=== PATIENT | female | born 1980 | race Caucasian/White ===

== ENCOUNTER → 2017-09-02 09:53 | Outpatient (CLI) | payer OTHER, SELFPAY ==
--- NOTE | 2017-09-02 09:56 | HPBI_ITS ---
MAMMOGRAPHY - BILATERAL SCREENING REASON FOR EXAM: Female, 36 years old. Routine annual screening examination. PERTINENT HISTORY: Mother with breast cancer. Aunt with breast cancer. TECHNIQUE: Digital bilateral breast earnestine (3D mammographic acquisition) in the CC and MLO projections. 2-D mediolateral oblique (MLO) and craniocaudad (CC) views of both breasts were obtained. CAD: Full Field Digital Mammography with Computer Added Detection was performed. COMPARISON: Comparison is made with prior examination dated September 01, 2016 and August 31, 2015. FINDINGS: Breast Composition: The breasts are heterogeneously dense, which may obscure small masses. There is a 1.2 cm x 2.3 cm well-defined nodular density in the upper lateral portion of the right breast. Correlation with ultrasound is recommended. No other significant abnormalities are identified. HPBI/SCREENING MAMM (CAD), BILAT IMPRESSION: Findings suggest a more well-defined nodular density in the upper outer portion of the right breast as described. Correlation with ultrasound is recommended. ASSESSMENT CATEGORY: BIRADS Category 0: Incomplete. Need additional imaging evaluation. A letter regarding these results will be sent to the patient by the facility within 30 days. Approximately 10% of breast cancers are not detected by mammography. A normal mammogram should not delay biopsy of a clinically suspicious abnormality. [id number] Electronically Signed: Richard Clayton MD at 12:50 EST Tel [phone], Service support ,
== END | disposition home or self-care (01) ==
PROVIDERS: Family Provider Internal Medicine; PCP Internal Medicine; Visit Provider Obstetrics & Gynecology
DX: Z80.3 Family history of malignant neoplasm of breast (principal)
CPT/HCPCS: 77063; 77067; G0202

== ENCOUNTER → 2018-07-19 14:39 | Outpatient (CLI) | payer OTHER, SELFPAY ==
[2018-07-30 10:15] LABS: HPV Reflexed? NOT INDICATED
== END ==
PROVIDERS: Visit Provider Obstetrics & Gynecology
DX: Z12.4 Encounter for screening for malignant neoplasm of cervix (principal)
CPT/HCPCS: 88175; G0145

== ENCOUNTER → 2018-09-16 10:09 | Outpatient (CLI) | payer OTHER, SELFPAY ==
--- NOTE | 2018-09-16 10:12 | BI_ITS ---
MAMMOGRAPHY - BILATERAL SCREENING REASON FOR EXAM: Female, 37 years old. Routine annual screening examination. PERTINENT HISTORY: Mother with breast cancer. TECHNIQUE: Digital bilateral breast earnestine (3D mammographic acquisition) in the CC and MLO projections. 2-D mediolateral oblique (MLO) and craniocaudad (CC) views of both breasts were obtained. CAD: Full Field Digital Mammography with Computer Added Detection was performed. COMPARISON: Comparison is made with prior study dated September 02, 2017 and September 01, 2016. FINDINGS: Breast Composition: The breasts are heterogeneously dense, which may obscure small masses. There are no dominant masses or suspicious calcifications. Once again, I suspect a 2.4 cm x 1.3 cm nodular density in the upper lateral portion of the right breast. Prior ultrasound did not show any abnormality. A repeat ultrasound is recommended. If no abnormality seen on the ultrasound, compression spot views is recommended. No other significant abnormalities are identified. BI/SCREENING MAMM (CAD), BILAT IMPRESSION: Persistent well-defined nodular density in the right breast as described. A repeat sonogram is recommended. If the sonogram does not show any abnormality, compression spot views should be obtained. ASSESSMENT CATEGORY: BIRADS Category 0: Incomplete. Need additional imaging evaluation. A letter regarding these results will be sent to the patient by the facility within 30 days. Approximately 10% of breast cancers are not detected by mammography. A normal mammogram should not delay biopsy of a clinically suspicious abnormality. [id number] Electronically Signed: Richard Clayton MD at 11:57 EST Tel [phone], Service support ,
== END ==
PROVIDERS: Family Provider Internal Medicine; PCP Internal Medicine; Referring Provider Obstetrics & Gynecology; Visit Provider Obstetrics & Gynecology
DX: Z12.31 Encounter for screening mammogram for malignant neoplasm of breast (principal)
CPT/HCPCS: 77063; 77067

== ENCOUNTER → 2018-09-20 10:56 | Outpatient (CLI) | payer OTHER, SELFPAY ==
--- NOTE | 2018-09-20 10:58 | US_ITS ---
STUDY: ULTRASOUND BREAST - RIGHT REASON FOR EXAM: Female, 37 years old. Abnormal screening mammogram. TECHNIQUE: Axial and longitudinal images of the RIGHT breast were performed with a high resolution ultrasound transducer. COMPARISON: Comparison is made with prior mammogram dated September 16, 2018. Comparison is also made of a prior sonogram of the right breast dated September 07, 2017. FINDINGS: RIGHT Breast: There is a 1.7 cm x 2 cm x 0.6 cm solid nodule at the 10:00 position of the breast at 8 cm from the nipple. A biopsy is recommended for further evaluation. At the 8:00 position in the breast at 8 summary some nipple, there is a 0.9 cm x 0.9 cm x 0.4 cm well-defined hypoechoic nodule suggestive of a small fibroadenoma. US/Breast Limited Unilateral IMPRESSION: The mammographic abnormality corresponds a 1.7 cm x 2 cm x 0.6 cm mixed echogenic solid nodule at the 10:00 position breast at 8 cm from nipple. A biopsy is recommended for further evaluation. ASSESSMENT CATEGORY: BIRADS Category 4: Suspicious - Biopsy Should Be Considered. A letter regarding these results will be sent to the patient by the facility within 30 days. Electronically Signed: Richard Clayton MD at 13:07 EST Tel [phone], Service support ,
== END ==
PROVIDERS: Family Provider Internal Medicine; PCP Internal Medicine; Referring Provider Obstetrics & Gynecology; Visit Provider Obstetrics & Gynecology
DX: R92.8 Other abnormal and inconclusive findings on diagnostic imaging of breast (principal)
CPT/HCPCS: 76642

== ENCOUNTER → 2018-09-24 12:49 | Outpatient (CLI) | payer OTHER, SELFPAY ==
[2018-09-23 14:11] VITALS: BMI 35.2
--- NOTE | 2018-09-24 12:59 | US_ITS ---
STUDY: ULTRASOUND BREAST - RIGHT REASON FOR EXAM: Female, 37 years old. Ultrasound guided biopsy of the 2 solid nodules in the right breast. TECHNIQUE: Axial and longitudinal images of the RIGHT breast were performed with a high resolution ultrasound transducer. COMPARISON: None. FINDINGS: RIGHT Breast: Under direct sonographic guidance, the surgeon performed core biopsies of the nodules at the 10:00 and 8:00 position the breasts. US/US Breast Biopsy 1st Lesion IMPRESSION: Successful ultrasound-guided breast biopsies. ASSESSMENT CATEGORY: BIRADS Category 4: Suspicious - Biopsy Should Be Considered. A letter regarding these results will be sent to the patient by the facility within 30 days. Electronically Signed: Richard Clayton MD at 14:59 EST Tel [phone], Service support ,
--- NOTE | 2018-09-24 13:30 | LES_PTH ---
PATIENT: ÁLVARO MAST LOC: [facility] U#:[id number] AGE/SX: 44/F ROOM: RE09/24/[address]: Dr. Avila Julien MD : 1980 BED: DIS: SPEC #: [id number] RECD: 09/24/18 15:20 STATUS: KELSI REUlisses #: [id number] YUMIKO: 09/24/18 13:[address]: Avila Julien DEPT: SURGICAL PATHOLOGY RECD BY: Michael Lorenzana ENTERED: 09/27/18 09:26 SP TYPE: Lesion OTHR DR: Dr. Meena Orellana, DO Tissues: A - Skin of nipple B - Skin of nipple Procedures: Surgery Specimen Level IV HEADER OPERATION: Ultrasound-guided right breast biopsy x2 PRE-OP DIAGNOSIS: Right breast lesion on mammogram/ultrasound TISSUE SUBMITTED: A. 10 o'clock lesion 8 cm from nipple, B. 8 o'clock lesion 8 cm from nipple ISCHEMIC TIME: 1 minute FIXATION TIME: 78 hours MICROSCOPIC DIAGNOSIS A. Right breast lesion at 10 o'clock, core biopsy: Consistent with fibroadenoma. B. Right breast lesion at 8 o'clock, core biopsy: Benign breast parenchyma. AM:trace 09/28/18 MICROSCOPIC DESCRIPTION Slides are reviewed. GROSS DESCRIPTION A - Received in fixative is one container labeled with the patient's name and designated right #1. The specimen consists of multiple elongated fragments of bill-yellow fibroadipose tissue that in aggregate measure 1.5 x 0.2 x 0.1 cm. The entire specimen is submitted in one cassette. B - Received in fixative is one container labeled with the patient's name and designated right #2. The specimen consists of multiple elongated fragments of bill-yellow fibroadipose tissue that in aggregate measure 1 x 1 x 0.1 cm. The entire specimen is submitted in one cassette. / SJ:trace 09/27/18 TC:5 CPT: 52148 x2
--- NOTE | 2018-10-04 14:29 | PCM.OPRPT ---
Problem List (1) Abnormal mammogram of right breast Status: Acute Report of Operation Date of Procedure: 09/24/18 Pre-Operative Diagnosis: Abnormal mammogram to right breast x2 Post-Operative Diagnosis: Same Surgery/Procedure Performed:: Ultrasound-guided needle core biopsy of right breast x2 Type of Anesthesia:: Local Description of Procedure: Some of the right breast at 10 o'clock position revealed the lesion in question. I prepped the breast with Betadine. I injected 1% lidocaine plain. I injected local down to the lesion using ultrasound guidance. A skin pete was made. Under ultrasound guidance to needle core biopsies were obtained of this lesion. Under ultrasound guidance a titanium clip was placed in the biopsy cavity. At the 8 o'clock position another lesion was identified. The skin was prepped with Betadine. 1% lidocaine plain was injected. Local was injected down to the lesion under ultrasound guidance. A skin pete was made. Under ultrasound guidance to needle core biopsies were obtained of this lesion. Under ultrasound guidance a small titanium clip was placed. Sterile dressings were applied. The patient tolerated the procedure well. - Admit VTE Documentation VTE Present on Admission: No VTE Mechan Device Prophylaxis: None VTE Pharm Prophylaxis ordered?: No Reason prophylaxis not ordered:: Treatment Not Indicated
--- OUTSIDE RECORDS SUMMARY | 2018-11-10 08:09 | XMS RPT_ITS ---
:1980 External Reference #:[id number] Author Organization OHIP Care Team Providers Name Role Phone JOSE A LAWLER Attending Unavailable JOSE A LAWLER Referring Unavailable Esteban DO, Meena Attending Unavailable Esteban DO, Meena Referring Unavailable Esteban DO, Meena Consulting Unavailable [facility], Avila Attending Unavailable Benekos, Leidy Referring Unavailable Anaya, Avila Attending Unavailable [facility], Avila Referring Unavailable Esteban, Meena Primary Care Unavailable Benekos, Leidy Attending Unavailable Benekos, Leidy Attending Unavailable Benekos, Leidy Referring Unavailable Esteban, Meena Primary Care Unavailable Anaya, Avila Attending Unavailable Esteban, Meena Referring Unavailable Anaya, Avila Attending Unavailable Benekos, Leidy Attending Unavailable Benekos, Leidy Referring Unavailable Esteban, Meena Primary Care Unavailable Purpose Purpose PROBLEMS PROBLEMS DATE TYPE CONDITION / CODE ATTENDING STATUS SOURCE 09/29/2018 Unknown D24.1 - Benign Avila Julien Active [place] neoplasm of right [facility] breast / Hospital D24.1(ICD-10) Repository 10/25/2018 Unknown R92.8 - Other Avila Julien Active [place] abnormal and Community inconclusive Hospital findings on Repository diagnostic imaging of breast / R92.8(ICD-10) 07/19/2018 Unknown Z12.4 - Encounter Leidy Piper Active [place] for screening for Community malignant neoplasm Hospital cervix / Repository Z12.4(ICD-10) 01/05/2018 Active Unknown / JOSE A LAWLER Active [facility] UNK(Unknown) Main [place] Repository PROCEDURES PROCEDURES No Procedure Records FoundVITAL SIGNS VITAL SIGNS No Vital Signs Records FoundRESULTS RESULTS OPERATIVE REPORT Observed: 10/04/2018 Status: F Source: [place] 4:07 PM [facility] REPOSITORY [facility] Medical Records Department [address] [place] [address] Operative Report 10/04/18 1429 MR#: [id number] Acct: [id number] Name: REA CHEN Rep #: [id number] : 1980 37 From: Avila Julien MD PCP: Meena Orellana DO Status: REG CLI Y Location: OPUS Problem List (1) Abnormal mammogram of right breast Status: Acute Report of Operation Date of Procedure: 09/24/18 Pre-Operative Diagnosis: Abnormal mammogram to right breast x2 Post-Operative Diagnosis: Same Surgery/Procedure Performed:: Ultrasound-guided needle core biopsy of right breast x2 Type of Anesthesia:: Local Description of Procedure: Some of the right breast at 10 o'clock position revealed the lesion in question. I prepped the breast with Betadine. I injected 1% lidocaine plain. I injected local down to the lesion using ultrasound guidance. A skin pete was made. Under ultrasound guidance to needle core biopsies were obtained of this lesion. Under ultrasound guidance a titanium clip was placed in the biopsy cavity. At the 8 o'clock position another lesion was identified. The skin was prepped with Betadine. 1% lidocaine plain was injected. Local was injected down to the lesion under ultrasound guidance. A skin pete was made. Under ultrasound guidance to needle core biopsies were obtained of this lesion. Under ultrasound guidance a small titanium clip was placed. Sterile dressings were applied. The patient tolerated the procedure well. - Admit VTE Documentation VTE Present on Admission: No VTE Mechan Device Prophylaxis: None VTE Pharm Prophylaxis ordered?: No Reason prophylaxis not ordered:: Treatment Not Indicated 10/04/18 1607 <Electronically signed by Avila Julien MD> Date Avila Julien MD CC: Avila Julien MD; Meena Orellana DO Signed SURGERY VISIT REPORT Observed: 09/29/2018 Status: F Source: [place] 1:59 PM [facility] REPOSITORY [facility] [address] [place] [address] [address] [place] [address] OFFICE VISIT Date of Service: 09/29/18 MR#: [id number] Acct: [id number] Name: REA CHEN Rep #: [id number] : 1980 Provider: Avila Julien MD Age/Sex: 37/F Location: [facility] Status: Signed Intake Vital Signs09/29/18 Body Mass Index (BMI) 35.2 Intake Visit Reasons: F/U BREAST BX 09/24/2018 [place] Induction Required: No Is patient in pain?: No Allergies erythromycin base Adverse Reaction (Verified 09/29/18 13:24) Vomiting Medications cholecalciferol (vitamin D3) 2,000 unit capsule 2,000 unit PO DAILY 12/13/18 [History Confirmed 09/29/18] ferrous sulfate ER 142 mg (45 mg iron) tablet,extended release 142 mg PO DAILY tab 09/23/18 [History Confirmed 09/29/18] fexofenadine 180 mg tablet 180 mg PO DAILY 09/23/18 [History Confirmed 09/29/18] lactobacillus combination no.9 4 billion cell capsule PO DAILY cap 09/23/18 [History Confirmed 09/29/18] metoprolol succinate ER 25 mg tablet,extended release 24 hr 25 mg PO DAILY 09/23/18 [History Confirmed 09/29/18] multivitamin capsule 1 cap PO DAILY 09/23/18 [History Confirmed 09/29/18] norethindrone acetate-ethinyl estradiol 0.5 mg-2.5 mcg tablet 1 tab PO DAILY 09/23/18 [History Confirmed 09/29/18] vitamin B complex tablet 1 tab PO DAILY 09/23/18 [History Confirmed 09/29/18] PFSH Medical History Fibroadenoma of right breast (Acute) right breast parenchyma (Acute) Abnormal mammogram of right breast (Acute) History of wisdom tooth extraction (Acute) Hypertension (Chronic) Surgical History History of (Acute) History of tonsillectomy (Acute) Family History Mother Breast cancer Colon cancer 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 Social History Smoking Status: Former smoker alcohol intake: never substance use type: does not use HPI HPI HPI: REA CHEN, is a 37 F who presents to the office today for follow-up from a ultrasound-guided right breast biopsy x2. Her biopsy date was 09/24/2018 she underwent an ultrasound-guided right needle core biopsy of the 10:00 lesion in the 8:00 lesion. The 10:00 lesion came back as a fibroadenoma. The 8:00 lesion came back as benign breast parenchyma. She has noted moderate amount of bruising. She has had no nipple discharge and no expanding hematomas. Exam Chest Other: 2 biopsy incisions look clean minimal bruising is identified. There is no cellulitis identified. Steri-Strips are off Assessment AND Plan Problems 1. 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 As long as this is stable and I do not need to see her back. We did discuss the need for her to go down to the [facility] secondary to having such a strong family history of breast cancer. She is going to discuss this with her mom and make a decision later. 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 [address] [place] [address] [address] [place] [address] OFFICE VISIT Date of Service: 09/23/18 MR#: [id number] Acct: [id number] Name: REA CHEN Marly Rep #: [id number] : 1980 Provider: Avila Julien MD Age/Sex: 37/F Location: [facility] Status: Signed Intake Vital Signs09/23/18 Height 5 ft 8 in 09/23/18 Weight: 232 lb Intake Visit Reasons: NODULE R BREAST, U/S AND MAMMO @ [facility] [place] Induction Required: No Is patient in pain?: No Allergies erythromycin base Adverse Reaction (Verified 09/29/18 13:24) Vomiting Medications cholecalciferol (vitamin D3) 2,000 unit capsule 2,000 unit PO DAILY 09/23/18 [History Confirmed 09/29/18] ferrous sulfate ER 142 mg (45 mg iron) tablet,extended release 142 mg PO DAILY tab 09/23/18 [History Confirmed 09/29/18] fexofenadine 180 mg tablet 180 mg PO DAILY 09/23/18 [History Confirmed 09/29/18] lactobacillus combination no.9 4 billion cell capsule PO DAILY cap 09/23/18 [History Confirmed 09/29/18] metoprolol succinate ER 25 mg tablet,extended release 24 hr 25 mg PO DAILY 09/23/18 [History Confirmed 09/29/18] multivitamin capsule 1 cap PO DAILY 09/23/18 [History Confirmed 09/29/18] norethindrone acetate-ethinyl estradiol 0.5 mg-2.5 mcg tablet 1 tab PO DAILY 09/23/18 [History Confirmed 09/29/18] vitamin B complex tablet 1 tab PO DAILY 09/23/18 [History Confirmed 09/29/18] [facility] Medical History 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 Patient underwent a mammogram and ultrasound completed [facility] on 09/20/2018. This showed a one-point centimeter by 2 cm x 0.6 cm nodule at the 10 o'clock position 8 cm from the nipple as well as a 0.9 x 0.9 x 0.4 cm nodule in the 8 o'clock position approximately 8 cm from the nipple. I initially took a look at these with my ultrasound to see if I could do a biopsy however they were so small there was nothing that I was going to be able to do in the office and was clear that I was going to need to do an ultrasound-guided needle biopsy in radiology. The patient does have a fairly strong family history of breast cancer. ROS General General: No weight change, appetite, fatigue, colon cancer, breast cancer or weakness HEENT HEENT: No difficulty swallowing, eye injury, eye surgery, swollen glands or hoarseness Endo Endocrine: No thyroid disease, diabetes mellitus, thyroid cancer, Hair loss, heat intolerance or cold intolerance Skin Skin: No rash or changing moles Breast Breast: No left breast lump, right breast lump, nipple discharge, breast pain, abnormal mammogram, abnormal US or breast enlargement Musc Musculoskeletal: No back problems, arthritis, rheumatoid arthritis, gout or joint pain Cardio Cardiovascular: Yes high blood pressure; no murmur, pacemaker, heart disease, atrial fibrillation, heart attack, heart stent, palpitations, shortness of breat with exertion or chest pain Psych Psychiatric: No depression, anxiety or hearing voices Resp Respiratory: No shortness of breath, No sleep apnea, No cough, No COPD, No asthma, No emphysema, No wheezing Gastro Gastrointestinal: No abdominal pain, No nausea or vomiting, No diarrhea, No constipation, No blood in stool, No acid reflux, No hemorrhoids, No ulcers, No gallbladder problem, No black,tarry stools Yoel Hematologic: No blood thinners, No blood disorders, No bleeding, No anemia, No blood clots Neuro Neurologic: No system reviewed and no additional complaints, except as docu, No as per HPI, No abnormal walking, No abnormal hearing, No abnormal movements, No abnormal speech, No behavioral changes, No burning sensations, No confusion, No seizure-like activity, No unsteadiness, No dizziness, No localized weakness, No frequent falls, No headache(s), No lack of coordination, No loss of vision, No memory loss, No numbness, No other visual disturbances, No radiating pain, No restless legs, No sensory deficit, No fainting, No tingling, No tremor(s), No weakness, No other Exam HENMT Head: normal to inspection, normocephalic, atraumatic Mouth: moist mucous membranes, oropharynx normal Eyes General: appearance normal, both eyes and all related structures Sclera: sclerae normal Neck Neck: no lymphadenopathy noted, trachea midline Neck mass: No Thyroid: thyroid normal Lymphatic: no lymphadenopathy noted Chest Breast inspection: normal inspection of the breasts Breast Palpation: No nipple discharge Resp Other: Respiratory Exam: Deferred Cardio Heart Sounds: no murmurs Other: Cardiac Exam: Deferred GI Other: GI Exam: Deferred Other: Rectal Exam: Deferred Extrem Other: Extremity Exam: Deferred Assessment AND Plan Problems 1. Abnormal mammogram of right breast R92.8 Plan I have discussed above with the patient. I have recommended ultrasound guided needle core breast biopsy x 2. I have described the procedure to the patient. I have discussed with the patient that sometimes the ultrasound lesion may be artifact and is user dependent and therefore prior to undergoing the procedure, the patient will have a definitive US to ensure that the lesion is truly present and is not artifact. A marker clip will be placed to identify the location. Patient has been counseled to the risks/benefits of the procedure. I have explained the risks of the surgery, including but not limited to: infection, bleeding, injury to any blood vessels/nerves, scar tissue, missing the lesion, further surgery, etc. - the patient understands and agrees to proceed. I have answered all of the patient's questions to her satisfaction and she has no further questions. Medications New: Coding Level of Care Code Off vis,new,level 3 Diagnoses Abnormal mammogram of right breast R92.8 09/29/18 1346 <Electronically signed by Avila Julien MD> Date Avila Julien MD Cosigner Signature: Date (if applicable) CC: Leidy Piper MD; Meena Orellana DO LESION (CHOOSE SITE) Observed: 09/24/2018 Status: F Source: [place] 1:30 PM [facility] REPOSITORY Patient: REA CHEN : 1980 (37/F) Acct Num: [id number] Phys: Anaya TAN,Avila Unit Num: [id number] Loc: OPUS Specimen: [id number] Received: 09/24/181519 Spec Type: Lesion TISSUES 1 TISSUES: A. Skin of nipple B. Skin of nipple GROSS DESCRIPTION A - Received in fixative is one container labeled with the patient's name and designated right #1. The specimen consists of multiple elongated fragments of bill-yellow fibroadipose tissue that in aggregate measure 1.5 x 0.2 x 0.1 cm. The entire specimen is submitted in one cassette. B - Received in fixative is one container labeled with the patient's name and designated right #2. The specimen consists of multiple elongated fragments of bill-yellow fibroadipose tissue that in aggregate measure 1 x 1 x 0.1 cm. The entire specimen is submitted in one cassette. / SJ:trace 09/27/18 TC:5 CPT: 26533 x2 HEADER OPERATION: Ultrasound-guided right breast biopsy x2 PRE-OP DIAGNOSIS: Right breast lesion on mammogram/ultrasound TISSUE SUBMITTED: A. 10 o'clock lesion 8 cm from nipple, B. 8 o'clock lesion 8 cm from nipple ISCHEMIC TIME: 1 minute FIXATION TIME: 78 hours MICROSCOPIC DESCRIPTION Slides are reviewed. MICROSCOPIC DIAGNOSIS A. Right breast lesion at 10 o'clock, core biopsy: Consistent with fibroadenoma. B. Right breast lesion at 8 o'clock, core biopsy: Benign breast parenchyma. AM:trace 09/28/18 Signed Jose A Michele DO 09/28/18 <signature on file> Performed By: #### PLES #### [facility] [address] [place], [address] US BREAST BIOPSY Observed: 09/24/2018 Status: F Source: [place] 1ST [place] 1:00 PM [facility] REPOSITORY [facility] Imaging Services [address] [place] [address] US Breast Biopsy 1st Lesion MR#: [id number] Acct: [id number] Name: REA CHEN Rep #: [id number] : 1980 F 37 From: Richard Clayton MD PCP: Meena Orellana DO Status: REG CLI Study: US Breast Biopsy 1st Lesion Date of Exam: 09/24/18 Exam# [id number] Ordering Dr: Avila Julien MD STUDY: ULTRASOUND BREAST - RIGHT REASON FOR EXAM: Female, 37 years old. Ultrasound guided biopsy of the 2 solid nodules in the right breast. TECHNIQUE: Axial and longitudinal images of the RIGHT breast were performed with a high resolution ultrasound transducer. COMPARISON: None. FINDINGS: RIGHT Breast: Under direct sonographic guidance, the surgeon performed core biopsies of the nodules at the 10:00 and 8:00 position the breasts. US/US Breast Biopsy 1st Lesion IMPRESSION: Successful ultrasound-guided breast biopsies. ASSESSMENT CATEGORY: BIRADS Category 4: Suspicious - Biopsy Should Be Considered. A letter regarding these results will be sent to the patient by the facility within 30 days. Electronically Signed: Richard Clayton MD at 14:59 EST Tel [phone], Service support , CC: Avila Julien MD; Meena Orellana DO [employer] Advisor: Signed BREAST LIMITED Observed: 09/20/2018 Status: F Source: [place] 10:58 AM [facility] REPOSITORY [facility] Imaging Services [address] [place] [address] Breast Limited Unilateral MR#: [id number] Acct: [id number] Name: REA CHEN Rep #: [id number] : 1980 F 37 From: Richard Clayton MD PCP: Meena Orellana DO Status: REG CLI Study: Breast Limited Unilateral Date of Exam: 09/20/18 Exam# [id number] Ordering Dr: Leidy Piper MD STUDY: ULTRASOUND BREAST - RIGHT REASON FOR EXAM: Female, 37 years old. Abnormal screening mammogram. TECHNIQUE: Axial and longitudinal images of the RIGHT breast were performed with a high resolution ultrasound transducer. COMPARISON: Comparison is made with prior mammogram dated September 16, 2018. Comparison is also made of a prior sonogram of the right breast dated September 07, 2017. FINDINGS: RIGHT Breast: There is a 1.7 cm x 2 cm x 0.6 cm solid nodule at the 10:00 position of the breast at 8 cm from the nipple. A biopsy is recommended for further evaluation. At the 8:00 position in the breast at 8 summary some nipple, there is a 0.9 cm x 0.9 cm x 0.4 cm well-defined hypoechoic nodule suggestive of a small fibroadenoma. US/Breast Limited Unilateral IMPRESSION: The mammographic abnormality corresponds a 1.7 cm x 2 cm x 0.6 cm mixed echogenic solid nodule at the 10:00 position breast at 8 cm from nipple. A biopsy is recommended for further evaluation. ASSESSMENT CATEGORY: BIRADS Category 4: Suspicious - Biopsy Should Be Considered. A letter regarding these results will be sent to the patient by the facility within 30 days. Electronically Signed: Richard Clayton MD at 13:07 EST Tel [phone], Service support , CC: Leidy Piper MD; Meena Orellana DO [employer] Advisor: Signed SCREENING MAMM (CAD), Observed: 09/16/2018 Status: F Source: [place] 10:12 AM [facility] REPOSITORY [facility] Imaging Services [facility] [address] [place] [address] SCREENING MAMM (CAD), BILAT MR#: [id number] Acct: [id number] Name: REA CHEN Rep #: [id number] : 1980 F 37 From: Richard Clayton MD PCP: Meena Orellana DO Status: [facility] CLI Study: SCREENING MAMM (CAD), BILAT Date of Exam: 09/16/18 Exam# [id number] Ordering Dr: Leidy Piper MD MAMMOGRAPHY - BILATERAL SCREENING REASON FOR EXAM: Female, 37 years old. Routine annual screening examination. PERTINENT HISTORY: Mother with breast cancer. TECHNIQUE: Digital bilateral breast earnestine (3D mammographic acquisition) in the CC and MLO projections. 2-D mediolateral oblique (MLO) and craniocaudad (CC) views of both breasts were obtained. CAD: Full Field Digital Mammography with Computer Added Detection was performed. COMPARISON: Comparison is made with prior study dated September 02, 2017 and September 01, 2016. FINDINGS: Breast Composition: The breasts are heterogeneously dense, which may obscure small masses. There are no dominant masses or suspicious calcifications. Once again, I suspect a 2.4 cm x 1.3 cm nodular density in the upper lateral portion of the right breast. Prior ultrasound did not show any abnormality. A repeat ultrasound is recommended. If no abnormality seen on the ultrasound, compression spot views is recommended. No other significant abnormalities are identified. BI/SCREENING MAMM (CAD), BILAT IMPRESSION: Persistent well-defined nodular density in the right breast as described. A repeat sonogram is recommended. If the sonogram does not show any abnormality, compression spot views should be obtained. ASSESSMENT CATEGORY: BIRADS Category 0: Incomplete. Need additional imaging evaluation. A letter regarding these results will be sent to the patient by the facility within 30 days. Approximately 10% of breast cancers are not detected by mammography. A normal mammogram should not delay biopsy of a clinically suspicious abnormality. [id number] Electronically Signed: Richard Clayton MD at 11:57 EST Tel [phone], Service support , CC: Leidy Piper MD; Meena Orellana DO [employer] Advisor: Signed GROUP A STREP BY Collected: 08/08/2018 Status: F Source: [facility] 9:33 AM [facility] REPOSITORY TYPE CODE TESTS RESULT OUT OF REFERENCE UNITS RANGE LAB GASSRC Throat Swab GAS Specimen Source LAB PCRGAS Negative for Group A Strep Group A PCR Streptococcus by PCR. Result Comment: This test was developed and its performance characteristics determined by [facility]'s [facility] Pathology and Laboratory Medicine [place] [facility] It has not been cleared or approved by the FDA. -[facility] is regulated under CLIA as qualified to perform high-complexity testing. This test is used for clinical purposes. It should not be regarded as inv estigational or for research. Performed By: #### GASPCR #### [facility] [address] [place], [place] [address] CNOV Observed: 08/08/2018 Status: COMPLETED Source: [place] 9:30 AM [facility] REPOSITORY Office Visit (WSTR) JESSICA CHENJAMAL Luke ([id number]) 1980 F Date Time Provider Department 08/08/18 9:30 AM WILLIAM FELICIANO ([facility]) [place] During your visit today, we recorded the following information about you: Temperature Pulse Respiration Blood pressure 98.2 degrees 92/minute 20/minute 148/96 Weight 104.8 kg William Feliciano APRN.CNP 08/08/2018 9:50 AM Signed Subjective HPI Rea Marly Chen is a 37 year old female who presents with a sore throat and sinus drainage for 2 days. She has taken Aleve at home. She has no known sick contacts. Review of Systems Constitutional: Negative. Negative for fever. HENT: Positive for congestion and sore throat. Respiratory: Positive for cough. Gastrointestinal: Positive for vomiting (once last night). Negative for nausea. Musculoskeletal: Negative. Negative for myalgias. Skin: Negative. Negative for rash. BP 148/96 Pulse 92 Temp 36.8 ?C (98.2 ?F) (Left Tympanic) Resp 20 Wt 104.8 kg (231 lb) SpO2 97% No past medical history on file. PAST SURGICAL HISTORY Procedure Laterality Date - , LOW, ANTE/POST CARE - ORAL SURGERY PROCEDURE wisdom teeth removal - TONSILLECTOMY HX ALLERGIES Erythromycin MEDICATIONS ECHINACEA ORAL Take 760 mg by mouth once daily. ascorbic acid, vitamin C, (VITAMIN C) 500 mg tablet Take 500 mg by mouth once daily. Cetirizine 10 mg cap Take 1 capsule by mouth once daily. FEXOFENADINE HCL (NICOLE ORAL) Take by mouth. NORETHINDRONE-E.ESTRADIOL-IRON (LOESTRIN FE 10/31, 28-DAY, ORAL) Take by mouth. LACTOBACILLUS COMBO NO.6 (PROBIOTIC COMPLEX ORAL) Take by mouth. multivitamin tablet Take 1 tablet by mouth once daily. FAMILY HISTORY Problem Relation Age of Onset - Hypertension Father - Cancer Mother eye, breast, colon - Asthma Sister - Cancer Maternal Grandmother - Colon Cancer Maternal Grandmother - Diabetes Maternal Grandmother - Multiple Sclerosis Paternal Aunt Social History Substance Use Topics - Smoking status: Never Smoker - Smokeless tobacco: Never Used - Alcohol use No Objective Physical Exam Constitutional: She is well-developed, well-nourished, and in no distress. HENT: Right Ear: Tympanic membrane, external ear and ear canal normal. Left Ear: Tympanic membrane, external ear and ear canal normal. Nose: Nose normal. No rhinorrhea. Mouth/Throat: Uvula is midline, oropharynx is clear and moist and mucous membranes are normal. No oropharyngeal exudate, posterior oropharyngeal edema or posterior oropharyngeal erythema. Eyes: Conjunctivae are normal. Neck: Neck supple. Cardiovascular: Normal rate, regular rhythm and normal heart sounds. Pulmonary/Chest: Effort normal and breath sounds normal. No respiratory distress. She has no wheezes. She has no rales. Lymphadenopathy: She has no cervical adenopathy. Neurological: She is alert. Skin: Skin is warm and dry. No rash noted. No erythema. Nursing note and vitals reviewed. ASSESSMENT/PLAN: 1. Viral URI with cough - ICD9: 465.9, ICD10: J06.9, B97.89 (primary diagnosis) - Discussed viral etiology and rationale for treatment. - Rapid strep negative in office today - Symptomatic treatment with prn analgesia - Supportive care with fluids and rest - OZDTNWYERNKLZNF-YXJRTZZIPBQFHMU-EQ 2 MG-30 MG-10 MG/5 ML SYRUP 2. Sore throat - ICD9: 462, ICD10: J02.9 - suspect viral - Rapid Strep negative in the office today and Throat culture pending - Discussed supportive care treatment with fluids, rest and analgesia. - The patient may also use warm salt water gargles, throat lozenges and/or OTC throat spray as needed. - Call back if drooling, increased temperature, symptoms of dehydration and/or still sick in one week - RAPID STREP TEST B/O - GROUP A STREPTOCOCCUS BY PCR - Follow-up with your PCP in 3-5 days if symptoms have not improved or sooner if symptoms worsen - Discussed red flags and need for immediate medical evaluation if any occur. - Discussed supportive care treatment with fluids, rest and analgesia. - Discussed expected course of illness William Feliciano APRN.MICHELLE Feliciano APRN.MICHELLE 08/08/2018 9:40 AM Addendum ASSESSMENT/PLAN: 1. Viral URI with cough - ICD9: 465.9, ICD10: J06.9, B97.89 - Discussed viral etiology and rationale for treatment. - Symptomatic treatment with prn analgesia - Supportive care with fluids and rest - LKHAAUAFMSCFQWR-XXMROPUNXCJIVTV-FB 2 MG-30 MG-10 MG/5 ML SYRUP 2. Sore throat - ICD9: 462, ICD10: J02.9 - suspect viral - Rapid Strep negative in the office today and Throat culture pending - Discussed supportive care treatment with fluids, rest and analgesia. - The patient may also use warm salt water gargles, throat lozenges and/or OTC throat spray as needed. - Call back if drooling, increased temperature, symptoms of dehydration and/or still sick in one week - RAPID STREP TEST B/O - GROUP A STREPTOCOCCUS BY PCR - Follow-up with your PCP in 3-5 days if symptoms have not improved or sooner if symptoms worsen - Discussed red flags and need for immediate medical evaluation if any occur. - Discussed supportive care treatment with fluids, rest and analgesia. - Discussed expected course of illness William Feliciano APRN.BLOCK HACKER Treatment for Viral Upper Respiratory Tract Infections Your body will kill off the virus by itself. Additionally, you can prime your body's immune system. This may help you get better more quickly. 1. Drink lots of fluids - at least one gallon of non-caffeinated liquids per day 2. Make sure you are eating well 3. Get plenty of rest - at least 8 hours of sleep per night for adults and more for children We do not have any medications that kill off these viruses. Antibiotics are used to treat bacterial infections; however, they are not active against viral infections. There are some things that might help you feel better, though. 1. Vaporizers, humidifiers, hot showers, and hot fluids help open respiratory and sinus passages 2. Sudafed is a safe and effective decongestant 3. Holloway Nasal [place] may offer relief of nasal and head congestion 4. Anurag's Vapor Rub placed on a hot towel and draped over the head may relieve congestion 5. Tylenol and Advil help control fevers and headaches 6. Salt water gargles help relieve sore throats 7. Chloraceptic spray or throat lozenges may also help relieve sore throat symptoms 8. Bromfed will help loosen up secretions and also provide relief from a cough Occasionally, viral infections turn into something more serious. You should see your doctor or return to the Urgent Care if: 1. You have fevers for longer than five days 2. You have fevers above 102 degrees 3. You are still sick after 10 days 4. You have shortness of breath or wheezing 5. After several days you are getting worse rather than better Referring Provider: SELF [200] Allergies As of Date: 08/08/2018 Noted Allergy Reaction ERYTHROMYCIN 11/27/2005 Date Reviewed: 08/08/2018 Reviewed by: William ([facility]) Jodie - Fully Assessed Reason for Visit: Sinusitis [127] Cmt: x 2 days Reason For Visit History Recorded Primary Visit Diagnosis:Viral URI with cough [J06.9, B97.89] Other Visit Diagnosis:Sore throat [J02.9] Order(s):Byouighatlivroo-Tvboizmlv-OP (BROMFED DM) 2-30-10 mg/5 mL syrupTake 5 mL by mouth four times daily as needed.Disp: 118 mLRfl: 0 RAPID STREP TEST B/O [9690176] Order #: [id number] GROUP A STREPTOCOCCUS BY PCR [SQGASPCR] Order #: [id number]. #:[id number] Prescriptions as of 08/08/2018 Sig: ECHINACEA ORAL Take 760 mg by mouth once nikunj* ASCORBIC ACID (VITAMIN C) 500* Take 500 mg by mouth once nikunj* CETIRIZINE 10 MG CAPSULE Take 1 capsule by mouth once * NICOLE ORAL Take by mouth. LOESTRIN FE 10/31 (28-DAY) ORAL Take by mouth. PROBIOTIC COMPLEX ORAL Take by mouth. 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 Viral URI with cough - ICD9: 465.9, ICD10: J06.9, B97.89 - Discussed viral etiology and rationale for treatment. - Symptomatic treatment with prn analgesia - Supportive care with fluids and rest - EHOFEMYNIGFCEUK-VVONIEKISVYPRSH-ZJ 2 MG-30 MG-10 MG/5 ML SYRUP 2. Sore throat - ICD9: 462, ICD10: J02.9 - suspect viral - Rapid Strep negative in the office today and Throat culture pending - Discussed supportive care treatment with fluids, rest and analgesia. - The patient may also use warm salt water gargles, throat lozenges and/or OTC throat spray as needed. - Call back if drooling, increased temperature, symptoms of dehydration and/or still sick in one week - RAPID STREP TEST B/O - GROUP A STREPTOCOCCUS BY PCR - Follow-up with your PCP in 3-5 days if symptoms have not improved or sooner if symptoms worsen - Discussed red flags and need for immediate medical evaluation if any occur. - Discussed supportive care treatment with fluids, rest and analgesia. - Discussed expected course of illness William Feliciano APRN.BLOCK HACKER Treatment for Viral Upper Respiratory Tract Infections Your body will kill off the virus by itself. Additionally, you can prime your body's immune system. This may help you get better more quickly. 1. Drink lots of fluids - at least one gallon of non-caffeinated liquids per day 2. Make sure you are eating well 3. Get plenty of rest - at least 8 hours of sleep per night for adults and more for children We do not have any medications that kill off these viruses. Antibiotics are used to treat bacterial infections; however, they are not active against viral infections. There are some things that might help you feel better, though. 1. Vaporizers, humidifiers, hot showers, and hot fluids help open respiratory and sinus passages 2. Sudafed is a safe and effective decongestant 3. Holloway Nasal [place] may offer relief of nasal and head congestion 4. Anurag's Vapor Rub placed on a hot towel and draped over the head may relieve congestion 5. Tylenol and Advil help control fevers and headaches 6. Salt water gargles help relieve sore throats 7. Chloraceptic spray or throat lozenges may also help relieve sore throat symptoms 8. Bromfed will help loosen up secretions and also provide relief from a cough Occasionally, viral infections turn into something more serious. You should see your doctor or return to the Urgent Care if: 1. You have fevers for longer than five days 2. You have fevers above 102 degrees 3. You are still sick after 10 days 4. You have shortness of breath or wheezing 5. After several days you are getting worse rather than better Prescriptions ordered this encounter Disp Refills Start End NZOCIUIOFDUKTAN-EGMKASTCGAUSVBE-UV 2* 118 * 0 08/08/2018 Route: ORAL Sig: Take 5 mL by mouth four times daily as needed. Encounter Status:Closed by WILLIAM FELICIANO on 08/08/18 PROGRESS Observed: 08/08/2018 Status: COMPLETED Source: [place] 9:25 AM [facility] [place] REPOSITORY HNO ID: [id number] Author: William (Michelle) Jodie Service: (none) Author Type: Nurse Practitioner Type: Progress Notes Filed: 08/08/2018 9:50 AM Note Text: Subjective HPI Rea Chen is a 37 year old female who presents with a sore throat and sinus drainage for 2 days. She has taken Aleve at home. She has no known sick contacts. Review of Systems Constitutional: Negative. Negative for fever. HENT: Positive for congestion and sore throat. Respiratory: Positive for cough. Gastrointestinal: Positive for vomiting (once last night). Negative for nausea. Musculoskeletal: Negative. Negative for myalgias. Skin: Negative. Negative for rash. BP 148/96 Pulse 92 Temp 36.8 ?C (98.2 ?F) (Left Tympanic) Resp 20 Wt 104.8 kg (231 lb) SpO2 97% No past medical history on file. PAST SURGICAL HISTORY Procedure Laterality Date - , LOW, ANTE/POST CARE - ORAL SURGERY PROCEDURE wisdom teeth removal - TONSILLECTOMY HX ALLERGIES Erythromycin MEDICATIONS ECHINACEA ORAL Take 760 mg by mouth once daily. ascorbic acid, vitamin C, (VITAMIN C) 500 mg tablet Take 500 mg by mouth once daily. Cetirizine 10 mg cap Take 1 capsule by mouth once daily. FEXOFENADINE HCL (NICOLE ORAL) Take by mouth. NORETHINDRONE-E.ESTRADIOL-IRON (LOESTRIN FE 10/31, 28-DAY, ORAL) Take by mouth. LACTOBACILLUS COMBO NO.6 (PROBIOTIC COMPLEX ORAL) Take by mouth. multivitamin tablet Take 1 tablet by mouth once daily. FAMILY HISTORY Problem Relation Age of Onset - Hypertension Father - Cancer Mother eye, breast, colon - Asthma Sister - Cancer Maternal Grandmother - Colon Cancer Maternal Grandmother - Diabetes Maternal Grandmother - Multiple Sclerosis Paternal Aunt Social History Substance Use Topics - Smoking status: Never Smoker - Smokeless tobacco: Never Used - Alcohol use No Objective Physical Exam Constitutional: She is well-developed, well-nourished, and in no distress. HENT: Right Ear: Tympanic membrane, external ear and ear canal normal. Left Ear: Tympanic membrane, external ear and ear canal normal. Nose: Nose normal. No rhinorrhea. Mouth/Throat: Uvula is midline, oropharynx is clear and moist and mucous membranes are normal. No oropharyngeal exudate, posterior oropharyngeal edema or posterior oropharyngeal erythema. Eyes: Conjunctivae are normal. Neck: Neck supple. Cardiovascular: Normal rate, regular rhythm and normal heart sounds. Pulmonary/Chest: Effort normal and breath sounds normal. No respiratory distress. She has no wheezes. She has no rales. Lymphadenopathy: She has no cervical adenopathy. Neurological: She is alert. Skin: Skin is warm and dry. No rash noted. No erythema. Nursing note and vitals reviewed. ASSESSMENT/PLAN: 1. Viral URI with cough - ICD9: 465.9, ICD10: J06.9, B97.89 (primary diagnosis) - Discussed viral etiology and rationale for treatment. - Rapid strep negative in office today - Symptomatic treatment with prn analgesia - Supportive care with fluids and rest - HCZBMWNJUVUPHQG-NPCEDZVPRIPQQCB-CO 2 MG-30 MG-10 MG/5 ML SYRUP 2. Sore throat - ICD9: 462, ICD10: J02.9 - suspect viral - Rapid Strep negative in the office today and Throat culture pending - Discussed supportive care treatment with fluids, rest and analgesia. - The patient may also use warm salt water gargles, throat lozenges and/or OTC throat spray as needed. - Call back if drooling, increased temperature, symptoms of dehydration and/or still sick in one week - RAPID STREP TEST B/O - GROUP A STREPTOCOCCUS BY PCR - Follow-up with your PCP in 3-5 days if symptoms have not improved or sooner if symptoms worsen - Discussed red flags and need for immediate medical evaluation if any occur. - Discussed supportive care treatment with fluids, rest and analgesia. 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 of containers..01 ThinPrep Vial TYPE CODE TESTS RESULT OUT OF RANGE REFERENCE UNITS LAB L7400.0800 . Normal DIAGN Comment Result Comment: NEGATIVE FOR INTRAEPITHELIAL LESION AND MALIGNANCY. LAB L7400.0900 . Normal ADEQ Comment Result Comment: Satisfactory for evaluation. Endocervical and/or squamous metaplastic cells (endocervical component) are present. LAB L7400.1400 . Normal PERFORM Comment Result Comment: Karie Torres Professor Of Historical Theology (ASCP) LAB L7400.2575 . Normal TEST METHOD Comment Result Comment: This liquid based ThinPrep(R) pap test was screened with the use of an image guided system. LAB L7400.2600 . Normal . COMM LAB L7400.2700 . Normal PAPSMR Comment Result Comment: The Pap smear is a screening test designed to aid in the detection of premalignant and malignant conditions of the uterine cervix. It is not a diagnostic procedure and should not be used as the sole means of detecting cervical cancer. Both false-positive and false-negative reports do occur. LAB L7400.2800 . Normal HPV RFLX Comment Result Comment: The HPV DNA reflex criteria were not met with this specimen result therefore, no HPV testing was performed. Performed at: - [facility] [id number] Cop Examiner: My Samson MD, Phone: [phone] Performed By: #### L7400.0350 #### [facility] (refer to report for specific site) refer to report for address and phone number [facility] Observed: 01/13/2018 Status: COMPLETED Source: [place] 12:00 AM [facility] REPOSITORY Letter Text Jose A Lawler MD Ophthalmology [address] [address] Dept: [phone] January 05, 2018 Leland Jenkins, OD [address] [facility] [address] Re: Rea Karely [facility]# [id number] Jenkins, This is a brief summary of Rea Chen. 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 Fine drusen was noted and there was no orange pigmentation or subretinal fluid associated with the lesion. On subsequent annual examinations including evaluation on 01/05/2018, the lesion continues to remain stable. I have therefore returned her to your care, recommending annual examinations. Thanking you. Sincerely, Jose A Lawler MD Director, Ophthalmic Oncology PROGRESS Observed: 01/05/2018 Status: COMPLETED Source: [place] 10:44 AM [facility] REPOSITORY HNO ID: [id number] Author: Jose A Lawler Service: (none) Author Type: Physician Type: Progress Notes Filed: 01/05/2018 10:48 AM Note Text: 1) Choroidal nevus OS - Diagnosed in 2014 - Stable compared to previous photos from 07/2015 - 2 x 1.5 x flat, no OP, no SRF (non supicious), Fine drusen+ Recommendations: - Observation 1 yearCasandramonika Jenkins OD [address] [address] See letter. I have confirmed and edited as necessary the relevant ophthalmic history, ROS, and the neuro exam findings as obtained by others. I have seen and examined this patient. I have discussed the case and the management of this patient's care with the Resident/Fellow, if applicable. I also have reviewed and agree with the assessment and plan as stated above and agree with all of its relevant components. Jose A Lawler MD January 05, 2018 10:48 AM ALLERGIES ALLERGIES DATE TYPE / CODE NAME / CODE REACTION SEVERITY SOURCE 09/29/2018 Drug erythromycin Vomiting Unknown [place] Allergy/416 base/[id number](RXN [facility] 479045([facility] ED CT) Repository 11/27/2005 DRUG/[id number] ERYTHROMYCIN [facility] 003([facility] [address] [place] [address]) Repository ENCOUNTERS ENCOUNTERS ADMIT/DISCHARGE ACCOUNT ADMITTING ENCOUNTER LOCATION SOURCE NUMBER CLASS 10/18/2018 [id number] Ambulatory Building:[facility] [place] Practices Repository 09/29/2018/09/29/20 [id number] Ambulatory BMSBuilding:B [place] 18 MS.[facility] Repository 09/24/2018 [id number] Ambulatory [facility] ing:OPUS Repository 09/24/2018 [id number] Ambulatory BMSBuilding:B [place] MS.CF.[facility] Repository 09/23/2018/09/23/20 [id number] Ambulatory BMSBuilding:B [place] 18 MS.[facility] Repository 09/20/2018 [id number] Ambulatory [facility] ing:OPUS Repository 09/16/2018 [id number] [facility] ing:OPBI Repository 08/08/2018/08/10/20 [id number] Ambulatory [address] Repository 07/19/2018 [id number] [facility] ing:LABSPEC Repository 01/05/2018/01/06/20 [id number] Ambulatory [address] Repository FUNCTIONAL STATUS FUNCTIONAL STATUS No Functional Status Records FoundEQUIPMENT EQUIPMENT No Equipment Records FoundPAYERS PAYERS ENCOUNTER GUARANTOR PAYER SUBSCRIBER SOURCE 10/18/2018 Rea E Primary Insurance:[facility] [place] OHIP Practices DePauloDOB: [place] DePauloDOB: Repository [id number] [facility] [id number] Marly Reese Number: [place], [place] [id number] [place], [place] [address]Myb: ([phone]) Date:4843-27-87Fxvw 467[address]Pqx: Name:[facility] [phone] () (HP)Tel: [phone] 2428XIIHCAL CLAIMS [phone] () DEPTMT. [place], [place] [address]HA: 10/18/2018 Secondary Rea E OHIP Practices Insurance:[employer] DePauloDOB: Repository cy Number: [id number] Marly Reese Date:2006[birth year]09[birth year]11 - [place], [place] [id number] [id number]: (330) Name:[facility] [phone] (HP) [address], [place] [phone]: 10/18/2018 Tertiary Insurance:The No [place] DCIP [facility] DePauloDOB: Repository Number: [id number] [place] Date:2010-06-12 - [place], [place] [id number] [phone]: ([phone]) Name:[address] [phone] () JAY [place] [address]FK: 10/18/2018 Tertiary Christopher A [place] Practices Insurance:[place] DePauloDOB: Repository /BSPolicy Number: [id number] [place] Date:2011-02-09 - [place]oxiAUGUSTIN Donato [id number] [address]Hqa: (330) Name:[phone] (HP) [address]2261Igtsbqd, [place] [id number]: 09/29/2018 REA E Primary CHRISTOPHER [place] [id number] E Insurance:CORESOURCEPo DEPAULODOB: Community REESE licy Number: [id number], [place] [id number] Repository [address]Duq: ([phone]) Date:1414-37-13TR [phone] (HP) [address]MT. JESUSITA LAI [address]NH: 09/29/2018 Secondary NOT GIVENUNK [place] Insurance:SELF PAY [facility] Number: Effective Repository Date:2018-09-29 09/24/2018 REA E Primary CHRISTOPHER [place] [id number] E Insurance:CORESOURCEPo DEPAULODOB: Community REESE licy Number: [id number], [place] [id number] Repository [address]Erf: ([phone]) Date:7614-85-10VU [phone] (HP) [address]MT. JESUSITA LAI [address]UH: 09/24/2018 Secondary NOT GIVENUNK [place] Insurance:SELF PAY [facility] Number: Effective Repository Date:2018-09-23 09/24/2018 REA E Primary CHRISTOPHER [place] [id number] E Insurance:CORESOURCEPo DEPAULODOB: Community REESE licy Number: [id number], [place] [id number] Repository [address]Hib: ([phone]) Date:0876-44-12SP [phone] (HP) [address]MT. JESUSITA LAI [address]DT: 09/24/2018 Secondary NOT GIVENUNK [place] Insurance:SELF PAY [facility] Number: Effective Repository Date:2018-09-24 09/23/2018 REA E Primary CHRISTOPHER [place] [id number] E Insurance:CORESOURCEPo DEPAULODOB: Community REESE licy Number: [id number], [place] [id number] Repository [address]Jmv: 330) Date:0731-96-30MW [phone] (HP) [address]MT. JESUSITA LAI [address]JG: 09/23/2018 Secondary NOT GIVENUNK [place] Insurance:SELF PAY [facility] Number: Effective Repository Date:2018-09-23 09/20/2018 REA E Primary CHRISTOPHER [place] [id number] E Insurance:CORESOURCEPo DEPAULODOB: Community REESE licy Number: [id number] Park, [place] [id number] Repository [address]Ccd: ([phone]) Date:4507-52-30SG [phone] (HP) [address]MT. JESUSITA LAI [address]LB: 09/20/2018 Secondary NOT GIVENUNK [place] Insurance:SELF PAY [facility] Number: Effective Repository Date:2018-09-16 09/16/2018 REA E Primary Christopher [place] [id number] E Insurance:CORESOURCEPo DepauloDOB: Community Reese licy Number: [id number], [place] [id number] Repository [address]Jjm: ([phone]) Date:1115-63-69QU [phone] (HP) [address]MT. JESUSITA LAI [address]TS: 09/16/2018 Secondary NOT GIVENUNK [place] Insurance:SELF PAY [facility] Number: Effective Repository Date:2018-07-21 07/19/2018 Rea Primary Christopher [place] [id number] E Insurance:CORESOURCEPo DepauloDOB: Community Reese licy Number: [id number] [facility] [place] [id number] Repository [address]Cks: (330) Date:0439-56-42XM [phone] () 12[address]OZ. JESUSITA LAI [address]JW: 07/19/2018 Secondary NOT GIVENUNK [place] Insurance:SELF PAY [facility] Number: Effective Repository Date:2018-07-19 SOCIAL HISTORY SOCIAL HISTORY No Social History Records FoundFAMILY HISTORY FAMILY HISTORY No Family History Records FoundADVANCE DIRECTIVES ADVANCE DIRECTIVES No Advanced Directives Records FoundINFORMATION SOURCE INFORMATION SOURCE DATE CREATED AUTHOR AUTHOR'S ORGANIZATION 11/03/2018 [facility]
== END ==
PROVIDERS: Family Provider Internal Medicine; PCP Internal Medicine; Referring Provider Surgery; Visit Provider Surgery
DX: R92.8 Other abnormal and inconclusive findings on diagnostic imaging of breast (principal)
CPT/HCPCS: 19083; 19084; 88305

== ENCOUNTER → 2019-07-20 | Outpatient (CLI) | payer OTHER, SELFPAY ==
[2018-09-29 13:25] VITALS: BMI 35.2
[2019-07-25 17:35] LABS: HPV Reflexed? NOT INDICATED
== END | disposition home or self-care (01) ==
LOC: LABSPEC 14:26
PROVIDERS: Family Provider Internal Medicine; PCP Internal Medicine; Referring Provider Obstetrics & Gynecology; Visit Provider Obstetrics & Gynecology
DX: Z12.4 Encounter for screening for malignant neoplasm of cervix (principal)
CPT/HCPCS: 88175; G0145

== ENCOUNTER → 2019-09-19 10:12 | Outpatient (CLI) | payer OTHER, SELFPAY ==
[2018-09-29 13:25] VITALS: BMI 35.2
--- NOTE | 2019-09-19 10:14 | BI_ITS ---
MAMMOGRAPHY - BILATERAL SCREENING REASON FOR EXAM: Female, 38 years old. Routine annual screening examination. PERTINENT HISTORY: Mother with breast cancer. Aunt with breast cancer TECHNIQUE: Digital bilateral breast anthony (3D mammographic acquisition) in the CC and MLO projections. 2-D mediolateral oblique (MLO) and craniocaudad (CC) views of both breasts were obtained. CAD: Full Field Digital Mammography with Computer Added Detection was performed. COMPARISON: Comparison is made with prior study dated September 16, 2018 and September 02, 2017. FINDINGS: Breast Composition: The breasts are heterogeneously dense, which may obscure small masses. There are no dominant masses or suspicious calcifications. A patient marker seen within a nodular density in the upper lateral portion of the right breast. Stable appearance of the bilateral axillary lymph nodes. No other significant abnormalities are identified. There has been no significant change since the prior study. BI/SCREEN MAMM (CAD) W/ANTHONY BILAT IMPRESSION: Stable bilateral screening mammogram. Yearly follow-up mammogram recommended. (A) ASSESSMENT CATEGORY: BIRADS Category 2: Benign. A letter regarding these results will be sent to the patient by the facility within 30 days. Approximately 10% of breast cancers are not detected by mammography. A normal mammogram should not delay biopsy of a clinically suspicious abnormality. [id number] Electronically Signed: Richard Clayton, at 12:36 EST , Service support ,
== END ==
PROVIDERS: Family Provider Internal Medicine; PCP Internal Medicine; Referring Provider Obstetrics & Gynecology; Visit Provider Obstetrics & Gynecology
DX: Z12.31 Encounter for screening mammogram for malignant neoplasm of breast (principal)
CPT/HCPCS: 77063; 77067

== ENCOUNTER → 2020-07-27 | Outpatient (CLI) | payer OTHER, SELFPAY ==
[2018-09-29 13:25] VITALS: BMI 35.2
[2020-08-01 15:07] LABS: HPV Reflexed? NOT INDICATED
== END | disposition home or self-care (01) ==
LOC: LABSPEC 14:34
PROVIDERS: PCP Internal Medicine; Visit Provider Student in an Organized Health Care Education/Training Program
DX: Z12.4 Encounter for screening for malignant neoplasm of cervix (principal)
CPT/HCPCS: 88175; G0145

== ENCOUNTER → 2020-09-20 15:16 | Outpatient (CLI) | payer OTHER, SELFPAY ==
[2018-09-29 13:25] VITALS: BMI 35.2
--- NOTE | 2020-09-20 15:19 | BI_ITS ---
MAMMOGRAPHY - BILATERAL SCREENING REASON FOR EXAM: Female, 39 years old. Routine annual screening examination. PERTINENT HISTORY: Mother with breast cancer. Aunt with breast cancer. History of right ultrasound-guided breast biopsy. TECHNIQUE: Digital bilateral breast anthony (3D mammographic acquisition) in the CC and MLO projections. 2-D mediolateral oblique (MLO) and craniocaudad (CC) views of both breasts were obtained. CAD: Full Field Digital Mammography with Computer Added Detection was performed. COMPARISON: Comparison is made with prior study dated 09/19/2019 and 09/16/2018. FINDINGS: Breast Composition: The breasts are heterogeneously dense, which may obscure small masses. There are no dominant masses or suspicious calcifications. A tissue clip marker is once again seen within a 1.7 cm nodule in the upper lateral aspect of the right breast. Stable benign-appearing bilateral axillary lymph nodes. No other significant abnormalities are identified. There has been no significant change since the prior study. BI/SCREEN MAMM (CAD) W/ANTHONY BILAT IMPRESSION: Stable bilateral screening mammogram. Yearly follow-up mammogram recommended. (A) ASSESSMENT CATEGORY: BIRADS Category 2: Benign. A letter regarding these results will be sent to the patient by the facility within 30 days. Approximately 10% of breast cancers are not detected by mammography. A normal mammogram should not delay biopsy of a clinically suspicious abnormality. [id number] Electronically Signed: Richard Claytno, at 8:33 EST , Service support ,
== END ==
PROVIDERS: PCP Internal Medicine; Referring Provider Student in an Organized Health Care Education/Training Program; Visit Provider Student in an Organized Health Care Education/Training Program
DX: Z12.31 Encounter for screening mammogram for malignant neoplasm of breast (principal)
CPT/HCPCS: 77063; 77067

== ENCOUNTER → 2021-04-02 10:58 | Outpatient (CLI) | payer OTHER, SELFPAY ==
[2018-09-29 13:25] VITALS: BMI 35.2
--- NOTE | 2021-04-02 11:06 | MRI_ITS ---
STUDY: BILATERAL BREAST MR WITHOUT AND WITH CONTRAST REASON FOR EXAM: Female, 40 years old. History of biopsy in 2 sites of the right breast. Family history of breast cancer in mother and aunt. TECHNIQUE: Multi-sequence multi-echo imaging of both breasts was performed with a dedicated breast coil. T1-weighted and T2-weighted images were performed before the administration of contrast. T1-weighted images were also performed after the administration of IV 20ml Dotarem without complications. COMPARISON: Bilateral mammograms dated 09/20/2020. FINDINGS: RIGHT BREAST: The breast tissue is heterogeneously dense with minimal background enhancement. 2 tissue clip markers are noted in the upper outer quadrant of the right breast. There are no abnormal enhancing masses or areas of non-mass enhancement in the right breast. LEFT BREAST: The breast tissue is heterogeneously dense with minimal background enhancement. There are no abnormal enhancing masses or areas of non-mass enhancement in the left breast. There are no enlarged or abnormal lymph nodes. There is no abnormality in the visualized regions of the chest or liver. MRI/Breast Bilateral W/O and W IMPRESSION: Post biopsy changes on the right. No other abnormality present. Annual yearly screening mammogram recommended. CATEGORY: BIRADS Category 2: Benign. A letter regarding these results will be sent to the patient by the facility within 30 days. Electronically Signed: Prashanth Garcia MD at 13:06 EDT , Service support ,
== END ==
PROVIDERS: PCP Internal Medicine; Referring Provider Student in an Organized Health Care Education/Training Program; Visit Provider Student in an Organized Health Care Education/Training Program
DX: R92.2 Inconclusive mammogram (principal); Z80.3 Family history of malignant neoplasm of breast
CPT/HCPCS: 77049; A9575; A4216; C8908

== ENCOUNTER → 2021-09-23 10:29 | Outpatient (CLI) | payer OTHER, SELFPAY ==
--- NOTE | 2021-09-23 10:31 | BI_ITS ---
MAMMOGRAPHY - BILATERAL SCREENING REASON FOR EXAM: Female, 40 years old. Routine annual screening examination. PERTINENT HISTORY: Mother with breast cancer. Aunt with breast cancer. History of prior right ultrasound-guided breast biopsy. TECHNIQUE: Digital bilateral breast anthony (3D mammographic acquisition) in the CC and MLO projections. 2-D mediolateral oblique (MLO) and craniocaudad (CC) views of both breasts were obtained. CAD: Full Field Digital Mammography with Computer Added Detection was performed. COMPARISON: Comparison is made with prior study dated 09/20/2020 and 09/19/2019. FINDINGS: Breast Composition: The breasts are heterogeneously dense, which may obscure small masses. There are no dominant masses or suspicious calcifications. Tissue clip marker is seen within a 1.4 cm nodular density in the upper lateral aspect of the right breast. This is decreased in size as compared to prior study. A similar feeling tissue marker is also seen in the upper outer quadrant of the right breast. Stable small benign-appearing bilateral axillary lymph nodes. No other significant abnormalities are identified. There has been no significant change since the prior study. BI/SCRN MAMM (CAD)W/ANTHONY BILAT IMPRESSION: Stable bilateral screening mammogram. Yearly follow-up mammogram recommended. (A) ASSESSMENT CATEGORY: BIRADS Category 2: Benign. A letter regarding these results will be sent to the patient by the facility within 30 days. Approximately 10% of breast cancers are not detected by mammography. A normal mammogram should not delay biopsy of a clinically suspicious abnormality. [id number] Electronically Signed: Richard Calyton MD at 12:16 EST , Service support ,
== END ==
PROVIDERS: PCP Internal Medicine; Referring Provider Student in an Organized Health Care Education/Training Program; Visit Provider Student in an Organized Health Care Education/Training Program
DX: Z12.31 Encounter for screening mammogram for malignant neoplasm of breast (principal)
CPT/HCPCS: 77063; 77067

== ENCOUNTER 2022-01-14 11:45 | Outpatient (CLI) | payer OTHER, SELFPAY ==
[2022-01-22 11:24] LABS: HPV APTIMA, High Risk Negative (Negative)
== END 2022-01-14 23:59 | disposition home or self-care (01) ==
LOC: LABSPEC 11:46
PROVIDERS: PCP Internal Medicine; Visit Provider Student in an Organized Health Care Education/Training Program
DX: Z12.4 Encounter for screening for malignant neoplasm of cervix (principal)
CPT/HCPCS: 87624; 88175; G0145

== ENCOUNTER → 2022-04-23 | Outpatient (CLI) | payer OTHER, SELFPAY ==
--- NOTE | 2022-04-23 13:14 | MRI_ITS ---
STUDY: BILATERAL BREAST MR WITHOUT AND WITH CONTRAST REASON FOR EXAM: Female, 41 years old. Family history of dysplasia. Screening. TECHNIQUE: Multi-sequence multi-echo imaging of both breasts was performed with a dedicated breast coil. T1-weighted and T2-weighted images were performed before the administration of contrast. T1-weighted images were also performed after the intravenous administration of 20 cc of Dotarem contrast. COMPARISON: Screening mammograms dated 09/23/2021. FINDINGS: RIGHT BREAST: The breast tissue is fatty with minimal background enhancement. There are no abnormal enhancing masses or areas of non-mass enhancement in the right breast. LEFT BREAST: The breast tissue is fatty with minimal background enhancement. There are no abnormal enhancing masses or areas of non-mass enhancement in the left breast. There are no enlarged or abnormal lymph nodes. There is no abnormality in the visualized regions of the chest or liver. MRI/Breast Bilateral W/O and W IMPRESSION: No abnormality on the breast MRI without and with contrast. Yearly follow up mammogram recommended. CATEGORY: BIRADS Category 2: Benign. A letter regarding these results will be sent to the patient by the facility within 30 days. Electronically Signed: Prashanth Garcia MD at 10:18 EDT ,
[2022-04-23 13:56] LABS: CREATININE FINGERSTICK < 0.9 mg/dL (0.55-1.02); EGFR FINGERSTICK > 60.0000 mL/min (>60)
== END | disposition home or self-care (01) ==
LOC: MRI 13:08
PROVIDERS: PCP Internal Medicine; Referring Provider Student in an Organized Health Care Education/Training Program; Visit Provider Student in an Organized Health Care Education/Training Program
DX: N60.19 Diffuse cystic mastopathy of unspecified breast (principal); Z80.3 Family history of malignant neoplasm of breast
CPT/HCPCS: 77049; A9575; A4216; C8908

== ENCOUNTER 2022-05-06 09:20 | Emergency (ER) | payer OTHER, SELFPAY ==
[2022-05-06 09:20] VITALS: BP 132/86; PULSE 82; RESP 18; TEMP 36.6; O2SAT 96; BMI 377.4
--- NOTE | 2022-05-06 09:43 | CT_ITS ---
STUDY: CT ABDOMEN AND PELVIS WITHOUT CONTRAST REASON FOR EXAM: Female, 41 years old. Left lower quadrant pain. RADIATION DOSAGE (If Supplied By Facility): CTDIvol = ( 21.34 ) mGy, DLP = ( 1030.04 ) mGycm TECHNIQUE: Transaxial images were obtained from the dome of the diaphragm to the symphysis pubis without oral contrast, and without intravenous contrast. Sagittal and coronal images were reconstructed. Individualized dose optimization techniques were used for this CT. COMPARISON: Comparison is made with prior examination dated 06/14/2015. FINDINGS: The visualized lung bases are unremarkable. The visualized portions of the heart are within normal limits. Normal liver. Normal gallbladder and extrahepatic biliary system. Normal spleen. Normal pancreas. Normal bilateral adrenal glands. Normal right kidney. Mild degree of the left hydronephrosis and hydroureter due to a 1 mm calculus at the left ureterovesical junction. There is a small hiatal hernia. Normal small intestine. Normal colon. The appendix is visualized and appears normal. Normal abdominal aorta. Normal inferior vena cava. Normal retroperitoneum. Normal urinary bladder. There is a small umbilical hernia containing fat. Normal osseous structures. CT/Abdomen/Pelvis without Cont IMPRESSION: Mild degree of left hydronephrosis and left hydroureter due to a 1 mm calculus at the left ureterovesical junction. Electronically Signed: Richard Clayton MD at 10:45 EDT ,
[2022-05-06] MEDS: Ketorolac 30 MG/ML Syringe IV (09:55)
[2022-05-06] MEDS: Morphine 4 MG/ML Syringe IV (09:55)
[2022-05-06] MEDS: Ondansetron 4 MG/2 ML Vial IV (09:55)
[2022-05-06 10:14] LABS: Internal QC Validated? YES +Cl - CLEAR BKGD; Pregnancy, Serum, hCG Quali. NEGATIVE Negative
[2022-05-06 11:28] LABS: Mucous, Urine 0 SEEN /hpf (<or=2+); Squamous Epithelial Cells - UA 0 SEEN /hpf (5-10)
[2022-05-06 11:33] LABS: Color, Urine Amber (Yellow); Glucose, Dipstick Normal (Normal); Leukocyte Esterase-Dipstick 100 /ul (Negative); Nitrite-Dipstick Negative (Negative); Occult Blood-Urine 250 /ul (Negative); Protein-Dipstick 100 mg/dl (Negative); Urine Clarity Turbid (Clear); Urine Urobilinogen 1 mg/dl (Normal)
[2022-05-06 11:36] LABS: Urine Bilirubin Dipstick 1 mg/dL (Negative)
[2022-05-06 11:38] LABS: Ketone-Dipstick 150 mg/dl (Negative)
[2022-05-06 11:47] LABS: Bacteria 1+ /hpf (None Seen); Calcium Oxalate Crystals Ur 1+ /hpf (<or=2+); Red Blood Cells-Urine 25-50 SEEN /hpf (0-5); White Blood Cells 10-25 SEEN /hpf (0-5)
--- NOTE | 2022-05-06 12:07 | ED.VIS.GI ---
HPI HPI - GI History of Present Illness Chief Complaint: Flank Pain Informant: patient Abdominal Pain/Flank Pain Onset: Today (Several hours ago) Context: Sudden Onset Timing: Continuous and Waxes and wanes Quality: Aching Location: LLQ Current Severity: Severe Maximum Severity: Severe Worsened by: Nothing Relieved by: Nothing Nausea/Vomiting/Emesis GI Symptom: Positive for Nausea and Vomiting Diarrhea/Melena/Hematochezia GI Symptom: Negative for Diarrhea, Melena or Hematochezia Associated Symptoms Associated Symptoms: Negative for Dysuria, Frequency, Hematuria or Urgency Narrative Narrative: Sudden onset severe pain in her left lower quadrant colicky associate with nausea and vomiting today never had this before. No history of stones that she knows of. She does have a history of ovarian cyst in the past, she states this feels different. 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 Home Medications cholecalciferol (vitamin D3) 50 mcg (2,000 unit) capsule 2,000 unit PO DAILY 09/23/18 [History Last Taken Unknown] ferrous sulfate 142 mg (45 mg iron) tablet,extended release (Slow Fe) 142 mg PO DAILY 09/23/18 [History Last Taken Unknown] fexofenadine 180 mg tablet (Nesha Allergy) 180 mg PO DAILY 09/23/18 [History Last Taken Unknown] lactobacillus combination no.9 4 billion cell capsule (Adult 50 Plus Probiotic) 1 cell PO DAILY 09/23/18 [History Last Taken Unknown] metoprolol succinate 25 mg tablet,extended release 24 hr (Toprol XL) 25 mg PO DAILY 09/23/18 [History Last Taken Unknown] multivitamin 1 cap PO DAILY 09/23/18 [History Last Taken Unknown] vitamin B complex (B Complex-Vitamin B12 tablet) 1 tab PO DAILY 09/23/18 [History Last Taken Unknown] amlodipine 5 mg tablet 5 tab PO 1XD 05/06/22 [History Last Taken Unknown] ondansetron 4 mg disintegrating tablet 8 mg PO Q8H PRN PRN Nausea #20 tabs 05/06/22 [Rx Last Taken Unknown] oxycodone-acetaminophen 5 mg-325 mg tablet 1 tab PO Q6H PRN PRN Pain 3 days #12 TABLETS 05/06/22 [Rx Last Taken Unknown] Allergy/AdvReac Type Severity Reaction Status Date / Time erythromycin base AdvReac Vomiting Verified 05/06/22 09:22 Family History Mother Breast cancer Colon cancer 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 Surgical History History of History of tonsillectomy History of wisdom tooth extraction Social History Smoking Status: Never smoker alcohol intake: never substance use type: does not use ROS ROS ED Constitutional Constitutional ED: Denies chills or fever(s) Eyes Eyes: Denies change in vision or diplopia ENT ENT ED: Denies rhinorrhea or sore throat Cardiovascular Cardiovascular: Denies chest pain or palpitations Respiratory/Chest Respiratory/Chest: Denies cough or dyspnea Gastrointestinal Gastrointestinal: Reports abdominal pain, nausea and vomiting; Denies diarrhea Genitourinary Genitourinary ED: Denies dysuria or hematuria Musculoskeletal Musculoskeletal: Denies back pain or neck pain Integumentary Denies abscess or rash Neurologic Neurologic: Denies headache(s), paresthesias or weakness Psychiatric Psychiatric: Denies anxiety or suicidal thoughts EXAM Physical Exam Const Vital Signs: 05/06/22 09:20 Temperature 97.9 F Temperature Source Temporal Pulse Rate 82 Respiratory Rate 18 Blood Pressure 132/86 H Blood Pressure Mean 101 Pulse Ox 96 Oxygen Delivery Method Room Air Positive well nourished, well developed and obese Constitutional Narrative: Standing hunched over the bed in painful distress. No respiratory distress. General Appearance ED: well developed Nutritional Appearance: obese HEENT Reports moist mucous membranes normocephalic and atraumatic Eyes PERRL and EOMs intact bilaterally Neck full ROM and supple Resp normal respiratory effort and clear to auscultation bilaterally Cardio regular rate, regular rhythm and no murmurs GI non-tender and non-distended Auscultation: normoactive bowel sounds Palpation: soft Back/Spine no CVA tenderness General Back: other FROM Extremity normal to inspection General Extremety ED: Negative for edema, pulses abnormal or tenderness General Extremity: Negative for edema or pulses abnormal Neuro oriented x3, CN's II-XII intact bilaterally and no sensory deficits noted Sensorium / Orientation: awake and alert Motor Exam: strength 5/5 throughout Skin no rashes or lesions noted and no wounds MDM MDM MDM Narrative Medical decision making narrative: CT shows a 1 mm stone at the left UVJ, consistent with the patient's history. Her urine shows a little bit of everything. There are no squamous epithelials and she does have calcium oxalate crystals consistent with stone component. I will send this for culture she does not have any symptoms of infection and she just darted having the pain so I think she probably does not have an infection especially since there are calcium oxalate crystals. After Zofran, Toradol, morphine she is pain-free and feeling much better. Will prescribe her medications for symptom management, we discussed reasons to return and follow-up. Lab Data Attestation: I reviewed the patient's lab results. Labs: Laboratory Results - last 24 hr 05/06/22 05/06/22 09:45 11:21 Serum , Qual NEGATIVE Urine Color Liza Urine Clarity Turbid Urine pH 5.0 Ur Specific [place] 1.030 Urine Protein 100 H Urine Glucose (UA) Normal Urine Ketones 150 A* Urine Occult Blood 250 H Urine Nitrite Negative Urine Bilirubin 1 H Urine Urobilinogen 1 H Ur Leukocyte Esterase 100 H Urine RBC 25-50 SEEN Urine WBC 10-25 SEEN Ur Squamous Epith Cells 0 SEEN Calcium Oxalate Crystal 1+ Urine Bacteria 1+ Urine Mucus 0 SEEN Radiography Diagnostic Testing: Clinical Impression(s) from Imaging Studies Abdomen/Pelvis CT 05/06/22 09:43 IMPRESSION: Mild degree of left hydronephrosis and left hydroureter due to a 1 mm calculus at the left ureterovesical junction. Electronically Signed: Richard Clayton MD at 10:45 EDT , Discharge Plan Triage Chief Complaint: Flank Pain ED Provider: Leland Montalvo Dx/Rx/DC Orders Clinical Impression: Ureterolithiasis, Ureteral colic Instructions: ED Kidney Stone w/ Colic Prescriptions: New oxycodone-acetaminophen [oxycodone-acetaminophen] 5-325 mg tablet 1 tab PO Q6H PRN PRN (Reason: Pain) 3 Days Qty: 12 0RF ondansetron [ondansetron] 4 mg tablet,disintegrating 8 mg PO Q8H PRN PRN (Reason: Nausea) Qty: 20 0RF No Action metoprolol succinate [Toprol XL] 25 mg tablet extended release 24 hr 25 mg PO DAILY multivitamin capsule capsule 1 cap PO DAILY lactobacillus combination no.9 4 billion cell capsule 4 billion cell capsule 1 cell PO DAILY fexofenadine [Nesha Allergy] 180 mg tablet 180 mg PO DAILY ferrous sulfate ER 142 mg (45 mg iron) tablet,extended release 142 mg (45 mg iron) tablet extended release 142 mg PO DAILY cholecalciferol (vitamin D3) 2,000 unit capsule 2,000 unit capsule 2,000 unit PO DAILY vitamin B complex tablet tablet 1 tab PO DAILY amlodipine 5 mg tablet 5 tab PO 1XD Label Comments: TAKE 1 TABLET BY MOUTH EVERY DAY Primary Care Provider: Meena Orellana Referrals: Asha Ladd MD [STAFF PHYSICIAN] - 1 Week if not improving Meena Orellana DO [Primary Care Provider] - Activity Restrictions/Additional Instructions: May take Aleve or ibuprofen along with the prescriptions if needed for pain. Every time you urinate, strain the urine at least for the next several days even if your pain is completely gone, or longer if your pain persists. Disposition Disposition: Home, Self Care
[2022-05-06] MEDS: oxyCODONE 5 MG Tablet PO (12:25)
[2022-05-06 12:30] VITALS: BP 138/77; PULSE 82; RESP 15; O2SAT 97
== END 2022-05-06 12:30 | disposition home or self-care (01) ==
PROVIDERS: Emergency Provider Emergency Medicine; PCP Internal Medicine; Visit Provider Emergency Medicine
DX: N13.2 Hydronephrosis with renal and ureteral calculous obstruction (principal); N23 Unspecified renal colic; E66.9 Obesity, unspecified; I10 Essential (primary) hypertension; Z79.899 Other long term (current) drug therapy
CPT/HCPCS: 74176; 81001; 84703; 96374; 96375; 99285; A4216; J2405

== ENCOUNTER → 2022-06-14 | Outpatient (CLI) | payer OTHER, SELFPAY ==
--- NOTE | 2022-06-14 08:58 | CT_ITS ---
EXAM: CT PELVIS WITHOUT INTRAVENOUS CONTRAST CLINICAL INDICATION: L DISTAL TECHNIQUE: Helically acquired images were obtained of the pelvis without intravenous contrast. This CT exam was performed using one or more of the following dose reduction techniques: automated exposure control, adjustment of the mA and/or kV according to patient size, and/or use of iterative reconstruction technique. This report was created using [employer] report generation technology. COMPARISON: CT Pelvis dated 05/06/2022 FINDINGS: KIDNEYS AND URETERS: Resolution of the left hydroureter. No evidence of residual ureteral stone. BOWEL: Unremarkable as visualized. No bowel distention. No focal inflammatory change. APPENDIX: Appendix is visualized and normal in appearance. INTRAPERITONEAL SPACE: Normal. No ascites or other fluid collection. No free air. BLADDER: Normal. REPRODUCTIVE: Unremarkable as visualized. No mass. BONES/JOINTS: Normal. No suspicious lytic or blastic abnormality. SOFT TISSUES: Normal. No pelvic wall hernia. LYMPH NODES: Normal. No enlarged lymph nodes. CT/Pelvis without IV Contrast IMPRESSION: Resolution of the left ureteral obstruction. No evidence of residual ureteral stone. Electronically Signed: Napoleon Perales MD at 10:24 EDT ,
== END | disposition home or self-care (01) ==
LOC: CT 08:52
PROVIDERS: PCP Internal Medicine; Referring Provider Urology; Visit Provider Urology
DX: N20.1 Calculus of ureter (principal)
CPT/HCPCS: 72192

== ENCOUNTER → 2022-10-15 | Outpatient (CLI) | payer OTHER, SELFPAY ==
--- NOTE | 2022-10-15 07:45 | BI_ITS ---
MAMMOGRAPHY - BILATERAL SCREENING REASON FOR EXAM: Female, 42 years old. Routine annual screening examination. PERTINENT HISTORY: Mother with breast cancer. Aunt with breast cancer. TECHNIQUE: Digital bilateral breast anthony (3D mammographic acquisition) in the CC and MLO projections. 2-D mediolateral oblique (MLO) and craniocaudad (CC) views of both breasts were obtained. CAD: Full Field Digital Mammography with Computer Added Detection was performed. COMPARISON: Comparison is made with prior study dated 09/23/2021 and 09/20/2020. FINDINGS: Breast Composition: The breasts are heterogeneously dense, which may obscure small masses. There are no dominant masses or suspicious calcifications. There are 2 tissue clip markers in the upper lateral aspect of the right breast. Stable, benign-appearing bilateral axillary lymph nodes. No other significant abnormalities are identified. There has been no significant change since the prior study. BI/SCRN MAMM (CAD)W/ANTHONY BILAT IMPRESSION: Stable bilateral screening mammogram. Yearly follow-up mammogram recommended. (A) ASSESSMENT CATEGORY: BIRADS Category 2: Benign. A letter regarding these results will be sent to the patient by the facility within 30 days. Approximately 10% of breast cancers are not detected by mammography. A normal mammogram should not delay biopsy of a clinically suspicious abnormality. [id number] Electronically Signed: Richard Clayton MD at 8:44 EST ,
== END | disposition home or self-care (01) ==
PROVIDERS: PCP Internal Medicine; Visit Provider Student in an Organized Health Care Education/Training Program
DX: Z12.31 Encounter for screening mammogram for malignant neoplasm of breast (principal); Z80.3 Family history of malignant neoplasm of breast
CPT/HCPCS: 77063; 77067

== ENCOUNTER 2022-11-11 08:00 | Outpatient (RCR) | payer OTHER, SELFPAY ==
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
--- NOTE | 2022-11-11 09:01 | HP.PTDCSUM ---
It has been my pleasure to treat ÁLVARO MAST referred by Dr. Asha Ladd MD, with the diagnosis of STRESS AND URGENT INCONTINENCE for a total of 13 visit(s). Discharge Date: Please see the following information for a summary of their discharge status. Subjective: PATIENT REPORTS SHE IS NO LONGER HAVING ANY INCONTINENCE PROBLEMS. SHE ALSO REPORTS HER BACK HAS BEEN DOING MUCH BETTER AND SHE IS APPRECICATIVE FOR ALL SHE HAS LEARNED. % Improvement: 100 Objective/Function: PATIENT WAS SEEN TODAY FOR RE-ASSESSMENT OF PROGRESS TOWARD THE SET PT GOALS AND THE NEED FOR FURTHER PHYSICAL THERAPY VS READINESS FOR DISCHARGE. UPON EXAM TODAY ALL GOALS APPEAR TO HAVE BEEN MET AND SHE IS AGREEABLE TO DISCHARGE. FUNCTIONAL SCREEN: Incontinence Impact Questionnaire Score: 0. Urogenital Distress Inventory Score: 0 Goal 1:: DECREASE URINARY LEAKAGE EPISODES TO 1 OR LESS PER DAY Goal Progress: Goal Met Goal 2:: PATIENT WILL SUCCESSFULLY DELAY VOIDING FOR 30 MINUTES WHEN URGENCY OCCURS Goal Progress: Goal Met Goal 3:: PATIENT WILL HAVE INCREASED PELVIC FLOOR MUSCLE STRENGTH GRADE TO 5/5 Goal 4:: PATIENT WILL DEMONSTRATE 10 CONSISTENT AND CONSECUTIVE 10 SECOND PELVIC FLOOR MUSCLE CONTRACTIONS TO DEMONSTRATE IMPROVED PELVIC FLOOR ENDURANCE. Goal 5:: VOID FREQUENCEY EVERY 3-4 HOURS Goal Progress: Goal Met Goal 6:: PATIENT WILL BE INDEP WITH A HEP/HOME INSTRUCTIONS FOR CONTINUED IMPROVEMENT ONCE FORMAL PHYSICAL THERAPY CONCLUDES. Goal Progress: Goal Met Plan: D/C TO INDEP HEP. If there are questions or concerns regarding this patient's physical therapy, please feel free to call me at [phone]. Thank you for the referral of this patient. Sincerely, Abril Herrera, PT, Cert MDT Balance/Gait/Functional tests - Balance/Special Test Scores Oswestry Low Back Score: 1
== END 2022-11-11 09:54 | disposition home or self-care (01) ==
LOC: PT 08:00
PROVIDERS: PCP Internal Medicine; Referring Provider Urology; Visit Provider Urology
DX: M54.16 Radiculopathy, lumbar region (principal); M62.830 Muscle spasm of back
CPT/HCPCS: 97110; 97161; 97164; 97530

== ENCOUNTER → 2023-01-27 | Outpatient (CLI) | payer OTHER, SELFPAY ==
[2023-02-02 21:28] LABS: HPV Reflexed? NOT INDICATED
== END | disposition home or self-care (01) ==
LOC: WOBLAB 09:59
PROVIDERS: PCP Internal Medicine; Visit Provider Student in an Organized Health Care Education/Training Program
DX: Z12.4 Encounter for screening for malignant neoplasm of cervix (principal)
CPT/HCPCS: 88175; G0145

== ENCOUNTER → 2023-02-24 | Outpatient (CLI) | payer OTHER, SELFPAY ==
--- NOTE | 2023-02-24 08:12 | MRI_ITS ---
STUDY: BILATERAL BREAST MR WITHOUT AND WITH CONTRAST REASON FOR EXAM: Female, 42 years old. Family history of breast cancer. Screening. TECHNIQUE: Multi-sequence multi-echo imaging of both breasts was performed with a dedicated breast coil. T1-weighted and T2-weighted images were performed before the administration of contrast. T1-weighted images were also performed after the intravenous administration of 23ml of Clariscan contrast. COMPARISON: Screening mammograms dated October 15, 2022 and April 23, 2022. FINDINGS: RIGHT BREAST: Scattered fibroglandular densities with minimal background enhancement. No abnormal enhancing masses or areas of non-mass enhancement in the right breast. LEFT BREAST: Scattered fibroglandular densities with minimal background enhancement. No abnormal enhancing masses or areas of non-mass enhancement in the right breast. No enlarged or abnormal lymph nodes. No abnormality in the visualized regions of the chest or liver. MRI/Breast Bilateral W/O and W IMPRESSION: No abnormality of the breast MRI with contrast. Given the patient''s history alternating screening mammography with breast MRI with contrast would be appropriate for future screening. CATEGORY: BIRADS Category 2: Benign. A letter regarding these results will be sent to the patient by the facility within 30 days. Electronically Signed: Prashanth Garcia, at 10:22 EDT ,
[2023-02-24 08:46] LABS: CREATININE FINGERSTICK < 0.9 mg/dL (0.55-1.02); EGFR FINGERSTICK > 60.0000 mL/min (>60)
== END | disposition home or self-care (01) ==
LOC: MRI 08:04
PROVIDERS: PCP Internal Medicine; Referring Provider Student in an Organized Health Care Education/Training Program; Visit Provider Student in an Organized Health Care Education/Training Program
DX: R92.2 Inconclusive mammogram (principal); Z80.3 Family history of malignant neoplasm of breast
CPT/HCPCS: 77049; A9575; A4216; C8908

== ENCOUNTER → 2023-08-17 | Outpatient (CLI) | payer OTHER, SELFPAY ==
--- NOTE | 2023-08-17 11:33 | US_ITS ---
STUDY: THYROID ULTRASOUND REASON FOR EXAM: Female, 42 years old. Thyromegaly TECHNIQUE: Ultrasound evaluation of the thyroid was performed with real-time and static nieto-scale imaging. COMPARISON: None. FINDINGS: RIGHT LOBE: The right lobe of the thyroid gland is enlarged and measures 5.2 cm x 1.4 cm x 1.7 cm. There is a homogeneous echotexture. There are no demonstrated solid, cystic or complex lesions. LEFT LOBE: The left lobe of the thyroid gland is enlarged and measures 5 cm x 1.6 x 1.3 cm. There is a homogeneous echotexture. There is an 8 mm x 6 mm x 7 mm hypoechoic solid nodule in the lower pole of the left lobe. This most likely represents an adenoma. ISTHMUS: The isthmus measures 2.6 mm. The regional lymph nodes are normal. US/Head/Neck Soft Tissue IMPRESSION: Thyroid enlargement. 8 mm x 6 mm x 7 mm hypoechoic solid nodule in the lower pole of the left lobe of the thyroid. Electronically Signed: Richard Clayton MD at 15:22 EST ,
== END | disposition home or self-care (01) ==
LOC: US 11:32
PROVIDERS: PCP Internal Medicine; Referring Provider Internal Medicine; Visit Provider Internal Medicine
DX: E01.0 Iodine-deficiency related diffuse (endemic) goiter (principal)
CPT/HCPCS: 76536

== ENCOUNTER → 2023-10-16 | Outpatient (CLI) | payer OTHER, SELFPAY ==
--- NOTE | 2023-10-16 07:47 | BI_ITS ---
MAMMOGRAPHY - BILATERAL SCREENING REASON FOR EXAM: Female, 43 years old. Routine annual screening examination. PERTINENT HISTORY: Mother with breast cancer. Aunt with breast cancer. TECHNIQUE: Digital bilateral breast anthony (3D mammographic acquisition) in the CC and MLO projections. 2-D mediolateral oblique (MLO) and craniocaudad (CC) views of both breasts were obtained. CAD: Full Field Digital Mammography with Computer Added Detection was performed. COMPARISON: Comparison is made with prior study dated October 15, 2022 and September 23, 2021. FINDINGS: Breast Composition: The breasts are heterogeneously dense, which may obscure small masses. There are no dominant masses or suspicious calcifications. Once again, 2 tissue markers are seen in the upper lateral aspect of the right breast. Stable benign-appearing bilateral axillary lymph nodes. No other significant abnormalities are identified. There has been no significant change since the prior study. BI/SCRN MAMM (CAD)W/ANTHONY BILAT IMPRESSION: Stable bilateral screening mammogram. Yearly follow-up mammogram recommended. (A) ASSESSMENT CATEGORY: BIRADS Category 2: Benign. A letter regarding these results will be sent to the patient by the facility within 30 days. Approximately 10% of breast cancers are not detected by mammography. A normal mammogram should not delay biopsy of a clinically suspicious abnormality. [id number] Electronically Signed: Richard Clayton MD at 15:00 EST ,
== END | disposition home or self-care (01) ==
LOC: OPBI 07:46
PROVIDERS: PCP Internal Medicine; Referring Provider Internal Medicine; Visit Provider Internal Medicine
DX: Z12.31 Encounter for screening mammogram for malignant neoplasm of breast (principal); Z80.3 Family history of malignant neoplasm of breast
CPT/HCPCS: 77063; 77067

== ENCOUNTER → 2024-05-03 | Outpatient (CLI) | payer OTHER, SELFPAY ==
--- NOTE | 2024-05-03 16:48 | CT_ITS ---
STUDY: CT ABDOMEN AND PELVIS WITHOUT CONTRAST REASON FOR EXAM: Female, 43 years old. HX STONES/NAUSEA/FLANK PAIN. One and half month history of bilateral flank pain and difficulty with urination. RADIATION DOSAGE (If Supplied By Facility): CTDIvol = ( 18.77 ) mGy, DLP = ( 942.56 ) mGycm TECHNIQUE: Transaxial images were obtained from the dome of the diaphragm to the symphysis pubis without oral contrast, and without intravenous contrast. Sagittal and coronal images were reconstructed. Individualized dose optimization techniques were used for this CT. COMPARISON: Comparison is made with prior study dated May 06, 2022. FINDINGS: The visualized lung bases are unremarkable. The visualized portions of the heart are within normal limits. Normal liver. Normal gallbladder and extrahepatic biliary system. Normal spleen. Normal pancreas. Normal bilateral adrenal glands. Normal right kidney. Normal left kidney. There is a small hiatal hernia. Normal small intestine. Normal colon. The appendix is visualized and appears normal. Normal abdominal aorta. Normal inferior vena cava. Normal retroperitoneum. Normal urinary bladder. There is a small umbilical hernia containing fat. Normal osseous structures. CT/Abdomen/Pelvis without Cont IMPRESSION: Normal unenhanced CT of the abdomen and pelvis. Electronically Signed: Richard Clayton MD at 10:14 EDT ,
== END | disposition home or self-care (01) ==
LOC: CT 16:46
PROVIDERS: PCP Internal Medicine; Referring Provider Urology; Visit Provider Urology
DX: R10.9 Unspecified abdominal pain (principal); R11.0 Nausea; Z87.442 Personal history of urinary calculi
CPT/HCPCS: 74176

== ENCOUNTER → 2025-01-23 | Outpatient (CLI) | payer OTHER, SELFPAY ==
--- NOTE | 2025-01-23 07:08 | BI_ITS ---
EXAM: SCRN MAMM (CAD)W/ANTHONY BILAT DATE: 01/23/2025 CLINICAL HISTORY: F, Age 44 y/o , SCREENING BREAST CANCER RISK ASSESSMENT: Has not been calculated. TECHNIQUE: Bilateral screening digital breast tomosynthesis with 2D and 3D images. Computer aided detection. COMPARISON: Prior exam(s) dated 10/16/2023 and 10/15/2022. FINDINGS: TISSUE DENSITY: The breast tissue is heterogenously dense, which may obscure small masses. Bilateral Breast Mammographic Findings: There are no suspicious masses, suspicious clustered microcalcifications, architectural distortion or secondary signs of malignancy identified in either breast. Benign-appearing round microcalcifications are seen in both breasts. 2 radiopaque clips are seen in the right breast. The biopsies were benign. Post biopsy sites are stable. BI/SCRN MAMM (CAD)W/ANTHONY BILAT IMPRESSION: Right Breast: BIRADS 2 BENIGN FINDING. Left Breast: BIRADS 2 BENIGN FINDING. OVERALL FINAL ASSESSMENT: BIRADS 2 BENIGN FINDING RECOMMENDATION: Routine annual follow-up in 1 Year A letter with findings and recommendations will be mailed to the patient. Reading Location: [id number]
== END | disposition home or self-care (01) ==
LOC: OPBI 07:06
PROVIDERS: PCP Internal Medicine; Referring Provider Obstetrics & Gynecology Gynecology; Visit Provider Obstetrics & Gynecology Gynecology
DX: Z12.31 Encounter for screening mammogram for malignant neoplasm of breast (principal)
CPT/HCPCS: 77063; 77067

== ENCOUNTER → 2025-09-13 | Outpatient (CLI) | payer OTHER, SELFPAY ==
[2025-09-13 10:16] LABS: Hematocrit 39.9 % (37-47); Hemoglobin 13.0 g/dL (12.0-15.0); Immature Granulocytes Count 0.010 X10^3/uL (0.0-0.0); Mean Corp Hgb Conc 32.6 g/dL (32-36); Mean Corpuscular Volume 92.1 fL (81-99); Mean Platelet Vol. 10.9 fl (6.2-12.0); NRBC Flagged by Analyzer 0 % (0-5); Platelet Count 279 K/mm3 (150-450); RBC Distribution Width CV 11.7 % (11.6-14.6); RBC Distribution Width SD 39.7 fl (35.1-43.9); Red Blood Count 4.33 M/mm3 (4.2-5.4); White Blood Count 4.5 K/mm3 (4.4-11.0)
[2025-09-13 11:09] LABS: AST(SGOT) 18 U/L (<=31); Alanine Aminotransfer ALT/SGPT 15 U/L (<=34); Albumin, Serum 4.2 g/dL (3.5-5.0); Alkaline Phosphatase 93 U/L (35-104); Anion Gap 11 (5-15); BUN 11 mg/dL (4-19); BUN/Creat Ratio 16.6 RATIO (10-20); Calcium,Total 9.3 mg/dL (7.6-11.0); Carbon Dioxide 23.9 mmol/L (21.0-32.0); Chloride 105 mmol/L (98-108); Cholesterol 220 mg/dL (<=200); Globulin 2.7 g/dL (2.2-4.2); Glucose 95 mg/dL (70-99); Low Density Lipoprotein Calc. 136 mg/dL; Potassium 4.1 mmol/L (3.3-5.1); Triglycerides 127 mg/dL; Very Low Density Lipoprotein 25 mg/dL (5-40); Vitamin D,25 Hydroxy 43.3 ng/mL (30-100); cholesterol:hdl ratio screen 3.56
[2025-09-13 11:30] LABS: Creatinine, Urine (random) 212.00 mg/dL (28.00-217.00); Microalbumin,Random Urine 19.0 mg/L (<20 mg/L)
[2025-09-14 14:08] LABS: Angiotensin Convert Enzyme 34 U/L (14-82)
== END | disposition home or self-care (01) ==
LOC: CIMLAB 08:09
PROVIDERS: PCP Internal Medicine; Referring Provider Internal Medicine; Visit Provider Internal Medicine
DX: E01.0 Iodine-deficiency related diffuse (endemic) goiter (principal); E55.9 Vitamin D deficiency, unspecified; E78.5 Hyperlipidemia, unspecified; R73.09 Other abnormal glucose
CPT/HCPCS: 36415; 80053; 80061; 82043; 82164; 82306; 82570; 84443; 85025

== ENCOUNTER → 2025-09-15 | Outpatient (CLI) | payer OTHER, SELFPAY ==
[2025-09-15 11:00] LABS: Ferritin 125 ng/mL (22-378); Iron 76 ug/dL (50-170); Iron Binding Capacity,Total 273 ug/dL (250-450); Iron Binding Capacity,Unsat 197 ug/dL (228-428); Vitamin B12 824 pg/mL (180-914)
== END | disposition home or self-care (01) ==
LOC: CIMLAB 08:32
PROVIDERS: PCP Internal Medicine; Referring Provider Internal Medicine; Visit Provider Internal Medicine
DX: R53.83 Other fatigue (principal); Z86.39 Personal history of other endocrine, nutritional and metabolic disease; R73.09 Other abnormal glucose
CPT/HCPCS: 36415; 82607; 82728; 83036; 83540; 83550